=== PATIENT | female | born 1960 | race African-American/Black ===

== ENCOUNTER 2017-03-06 15:20 | Emergency (ER) | payer OTHER ==
--- NOTE | 2017-03-06 15:22 | PDOC ---
History of Present Illness - General History Source: Patient, Old Records Exam Limitations: No Limitations - History of Present Illness Initial Comments: 03/06/17 15:31 The patient is a 56 year old female with a no significant past medical history, BIBA to the emergency department today with right knee pain and swelling s/p mechanical fall prior to presenting. The patient is an employee at [employer] and was trying to prevent a resident from falling when she fell and hit her knee. The patient notes that she is unable to put weight on her knee secondary to her pain As per EMS the patient was given an 2 extra strength tylenol, an ice pack, and a wheelchair to treat symptoms with minimal alleviation. <Geoff Rodriguez - Last Filed: 03/06/17 15:46> <Nelson Ferguson - Last Filed: 03/06/17 16:54> - General Chief Complaint: Injury Stated Complaint: RT KNEE PAIN Time Seen by Provider: 03/06/17 15:22 Past History <Geoff Rodriguez - Last Filed: 03/06/17 15:46> - Immunization History Td Vaccination: Yes Immunization Up to Date: Yes - Psycho/Social/Smoking Cessation Hx Anxiety: No Suicidal Ideation: No Smoking Status: No Number of Cigarettes Smoked Daily: 0 <Nelson Ferguson - Last Filed: 03/06/17 16:54> - Past Medical History Allergies/Adverse Reactions: Allergies Allergy/AdvReac Type Severity Reaction Status Date / Time No Known Allergies Allergy Verified 03/06/17 15:21 Home Medications: Ambulatory Orders Acetaminophen [Tylenol -] 1,000 mg PO ONCE PRN 03/06/17 Review of Systems - Review of Systems Able to Perform ROS?: Yes Constitutional: No: Chills, Fever, Loss of Appetite HEENTM: No: Eye Pain, Blurred Vision, Recent change in vision, Double Vision, Ear Pain, Nose Bleeding, Hearing Loss, Throat Pain, Throat Swelling Respiratory: No: Cough, Orthopnea, Shortness of Breath, SOB with Exertion, SOB at Rest, Wheezing, Productive cough Cardiac (ROS): No: Chest Pain, Lightheadedness, Palpitations, Syncope ABD/GI: No: Abdominal Distended, Abd. Pain w/ defecation, Constipated, Diarrhea , Nausea, Rectal Bleeding, Vomiting, Abdominal cramping : No: Burning, Dysuria, Flank Pain, Hematuria Musculoskeletal: Yes: Symptoms Reported, See HPI, Joint Pain (Right knee pain), Joint Swelling (Right knee swelling). No: Back Pain, Gout, Muscle Weakness, Neck Pain Integumentary: No: Change in Hair/Nails, Lesions, Lumps, Pallor, Rash Neurological: No: Headache, Numbness, Seizure, Tingling Psychiatric: No: Sleep Pattern Change, Mood Swings, Change in Appetite Endocrine: No: Intolerance to Cold, Intolerance to Heat, Increased Thirst, Unexplained Weight Loss, Change in Weight Hematologic/Lymphatic: No: Anemia, Blood Clots, Easy Bleeding All Other Systems: Reviewed and Negative <Geoff Rodriguez - Last Filed: 03/06/17 15:46> *Physical Exam - Vital Signs Last Vital Signs Temp Pulse Resp BP Pulse Ox 98.1 F 73 18 125/64 98 03/06/17 15:20 03/06/17 15:20 03/06/17 15:20 03/06/17 15:20 03/06/17 15:20 - Physical Exam General Appearance: Yes: Nourished, Appropriately Dressed, Apparent Distress. No: Disheveled, Alcohol on Breath HEENT: positive: EOMI, SOILA, Normal ENT Inspection, Normal Voice. negative: Tonsillar Erythema, Nasal Congestion, Rhinorrhea, Sinus Tenderness, Lesions, Excessive drooling Neck: positive: Supple. negative: Tender, Decreased range of motion, Lymphadenopathy (R), Lymphadenopathy (L) Respiratory/Chest: positive: Lungs Clear, Normal Breath Sounds. negative: Chest Tender, Respiratory Distress, Accessory Muscle Use, Labored Respiration, Crackles, Rales, Rhonchi Cardiovascular: positive: Regular Rhythm, Regular Rate, S1, S2. negative: Edema , JVD, Murmur Gastrointestinal/Abdominal: positive: Normal Bowel Sounds. negative: Tender, Increased Bowel Sounds, Decreased BS, Distended, Guarding, Rebound, Hernia, Mass Musculoskeletal: positive: Normal Inspection, Decreased Range of Motion ( Decreased range of motion of the right knee. 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 NML intact, Fully Oriented, Alert, Normal Response <Geoff Rodriguez - Last Filed: 03/06/17 15:46> ED Treatment Course - ADDITIONAL ORDERS Additional order review: 03/06/17 16:54 x-ray right knee DJD, no fracture <Nelson Ferguson - Last Filed: 03/06/17 16:54> Progress Note - Progress Note Progress Note: Pt with right knee pain s/p fall, sent for x-ray to r/o fracture Swollen, tender with mild abrasion, effusion, with decreased ROM Pulses 2+/4 b/l in LE, no calf tenderness, positive valgus/varus maneuvers, neg Gladys test Knee x-ray right negative for fracture DJD Will place in knee imobilzer,elevate, rest, ice and cane Pt refuses crutches, minimal weight bearing Follow up with Orthopedics If worsen return to ER <Nelson Ferguson - Last Filed: 03/06/17 16:54> *DC/Admit/Observation/Transfer - Attestations Scribe Attestion: 03/06/17 15:46 Documentation prepared by Geoff Rodriguez, acting as medical device assembler for Nelson Ferguson MD. <Geoff Rodriguez - Last Filed: 03/06/17 15:46> - Discharge Dispostion Admit: No <Nelson Ferguson - Last Filed: 03/06/17 16:54> Diagnosis at time of Disposition: Knee contusion Qualifiers: Encounter type: initial encounter Laterality: right Qualified Code(s): S80.01XA - Contusion of right knee, initial encounter - Discharge Dispostion Condition at time of disposition: Stable - Patient Instructions Printed Discharge Instructions: DI for Knee Sprain Additional Instructions: Ice, Motrin, rest, elevate Cane, knee immobilizer Follow up with Orthopedics this week If worsen return to ER
[2017-03-06 15:30] VITALS: BP 125/64; PULSE 73; TEMP 98.1; BMI 36.6
== END 2017-03-06 16:59 | disposition home or self-care (01) ==
LOC: FER 15:20
PROC: 2W3QX1Z Immobilization of Right Lower Leg using Splint (ICD-10-PCS; principal; 2017-03-06)
DX: S80.01XA Contusion of right knee, initial encounter (principal); W18.39XA Other fall on same level, initial encounter; Y93.89 Activity, other specified; Y92.129 Unspecified place in nursing home as the place of occurrence of the external cause; Y99.0 Civilian activity done for income or pay
CPT/HCPCS: 73562-TC-RT; 99283-25